=== PATIENT | female | born 1985 | race Hispanic/Latino ===

== ENCOUNTER 2016-12-07 00:17 | Emergency (ER) | payer OTHER ==
[2016-12-07 00:44] VITALS: BP 144/89; PULSE 80; RESP 16; TEMP 98.7; O2SAT 99
--- NOTE | 2016-12-07 01:15 | ED PDOC ---
HPI: Skin/Bite Injury Time Seen by Provider: 12/07/16 01:00 Chief Complaint (Nursing): Abnormal Skin Integrity Chief Complaint (Provider): left eye superficial laceration History Per: Patient History/Exam Limitations: no limitations Onset/Duration Of Symptoms: Hrs Current Symptoms Are (Timing): Still Present Location Of Injury: Left: Face (right under the eye brow) Quality Of Symptoms: Other Severity: Mild Pain Scale Rating Of: 3 Additional History Per: Patient Additional Complaint(s): 31 y/o female with no significant medical history presenting with cc of left eye injury; per pt about an hour ago a laptop fell on her face, she did not loss conciousness, did not suffer any other injuries besides the cut right above her eye and she wanted to make sure she did not need stitches. Does not have any other complaints. Denies headache, visual changes, dizziness, chest pain or sob Past Medical History Vital Signs: Last Vital Signs Temp 98.7 F 12/07/16 00:42 Pulse 80 12/07/16 00:42 Resp 16 12/07/16 00:42 BP 144/89 12/07/16 00:42 Pulse Ox 99 12/07/16 01:28 - Medical History PMH: No Chronic Diseases - Family History Family History: States: No Known Family Hx - Allergies Allergies/Adverse Reactions: Allergies Allergy/AdvReac Type Severity Reaction Status Date / Time No Known Allergies Allergy Verified 12/07/16 00:54 Review of Systems ROS Statement: Except As Marked, All Systems Reviewed And Found Negative Physical Exam - Physical Exam Appears: Positive for: Well, No Acute Distress Head Exam: Positive for: NORMOCEPHALIC Skin: Positive for: Normal Color (less than 1cm laceration underneath the eye brow) Eye Exam: Positive for: Normal appearance. Negative for: Periorbital swelling, Conjunctival injection Neck: Positive for: Normal, Painless ROM, Supple Cardiovascular/Chest: Positive for: Regular Rate, Rhythm, Chest Non Tender. Negative for: Murmur Respiratory: Positive for: Normal Breath Sounds. Negative for: Decreased Breath Sounds, Accessory Muscle Use, Wheezing Gastrointestinal/Abdominal: Positive for: Normal Exam, Bowel Sounds, Soft. Negative for: Tenderness, Mass Extremity: Positive for: Normal ROM. Negative for: Tenderness, Pedal Edema Neurologic/Psych: Positive for: Alert, billing control clerk II-XII, Oriented - ECG O2 Sat by Pulse Oximetry: 99 - Progress ED Course And Treament: Dermabond laceration re-aligned Medical Decision Making Medical Decision Making: Pt had a superficial ,1cm laceration that was re-aligned using dermabond Disposition - Clinical Impression Clinical Impression: Laceration - Patient ED Disposition Is Patient to be Admitted: No - Disposition Disposition: Routine/Home Disposition Time: 01:20 Condition: STABLE Instructions: Skin Adhesive Care (ED), Facial Laceration (ED) Forms: [employer] (Sudanese) Print Language: PALAUAN
== END 2016-12-07 01:36 | disposition home or self-care (01) ==
LOC: H.ER 00:17
DX: S01.81XA Laceration without foreign body of other part of head, initial encounter (principal); W22.8XXA Striking against or struck by other objects, initial encounter; Y92.89 Other specified places as the place of occurrence of the external cause